=== PATIENT | female | born 1985 | race Two or more races ===

== ENCOUNTER 2023-03-10 14:38 | Inpatient (IN) | payer MEDICAID, OTHER ==
[~2023-03-10] VITALS: Ht 355.6 cm; Wt 62.4 kg
[2023-03-10 15:25] LABS: Eosinophils # (auto) 0.1 10 ^3/uL (0-0.8); Lymphocytes # (auto) 1.9 10 ^3/uL (0.4-5.4); Neutrophils # (auto) 4.8 10 ^3/uL (1.6-8.6); White Blood Cell 7.2 10^3/uL (4.4-10.8)
[2023-03-10 15:28] LABS: Basophils # (auto) 0.1 10 ^3/uL (0-0.2); Basophils % (auto) 1.1 % (0.0-2.0); Hematocrit 39.1 % (36.0-46.0); Lymphocytes % (auto) 26.8 % (10.0-50.0); Mean Corpuscular Hemoglobin 29.4 pg (28.0-32.0); Mean Corpuscular Hgb Conc. 33.4 g/dL (32.0-36.0); Mean Corpuscular Volume 88.1 fL (80.0-100.0); Monocytes # (auto) 0.4 10 ^3/uL (0-1.3); Monocytes % (auto) 5.1 % (0.0-12.0); Red Blood Cells 4.44 10^6/uL (4.0-5.20); Red Cell Distribution Width 13.5 % (11.8-14.3)
[2023-03-10 15:58] LABS: Potassium 4.7 mmol/L (3.5-5.1)
[2023-03-10 16:06] LABS: Albumin 3.5 g/dL (3.4-5.0); BUN/Creatinine Ratio 19.2 (10.0-20.0); Bilirubin, Total 0.3 mg/dL (0.2-1.0); CRP High Sensitivity 0.4 mg/dL (< 0.3); Calcium 8.7 mg/dL (8.5-10.1); Total Protein 7.2 g/dL (6.4-8.2)
[2023-03-10 16:31] LABS: Urine Bacteria NONE SEEN /hpf (None Seen); Urine Blood Negative /uL (Negative); Urine Specific Gravity 1.016 (1.001-1.035); Urine WBC <1 /hpf (0 - 5)
[2023-03-10 16:44] LABS: Amphetamine Screen, Urine NEGATIVE (NEGATIVE); Barbiturate Scree,Urine NEGATIVE (NEGATIVE); Benzodiazephine Screen, Urine NEGATIVE (NEGATIVE); Cannabinoid Screen, Urine NEGATIVE (NEGATIVE); Cocaine Screen, Urine NEGATIVE (NEGATIVE); Phencyclidine Screen, Urine NEGATIVE (NEGATIVE)
[2023-03-10 16:46] LABS: Opiate Scree,Urine NEGATIVE (NEGATIVE)
[2023-03-10] MEDS ORDERED: IOHEXOL 300 MG/ML 100ML BOTTLE IJ ONE (17:36)
[2023-03-10] MEDS ORDERED: LEVO-185 PO (19:43)
[2023-03-10] MEDS ORDERED: NORE0.3510 PO (19:43)
[2023-03-10] MEDS ORDERED: IBUP-1455 PO (19:43)
[2023-03-10] MEDS ORDERED: HYDROcodone-ACET 5/325MG TAB PO PRN (19:45)
[2023-03-10] MEDS ORDERED: ACETAMINOPHEN 325 MG TAB PO PRN (19:45)
[2023-03-10] MEDS ORDERED: PANTOPRAZOLE 40 MG/10 ML VIAL INJ IV ONE (19:45)
[2023-03-10] MEDS ORDERED: IBUPROFEN 800 MG TAB PO PRN (19:45)
[2023-03-10 22:33] LABS: INR 1.02 (0.9-1.15)
[2023-03-11 04:54] LABS: Basophils # (auto) 0 10 ^3/uL (0-0.2); Basophils % (auto) 0.3 % (0.0-2.0); Eosinophils # (auto) 0.1 10 ^3/uL (0-0.8); Eosinophils % (auto) 1.9 % (0.0-7.0); Hemoglobin 12.1 g/dL (12.2-16.2); Lymphocytes # (auto) 2.6 10 ^3/uL (0.4-5.4); Lymphocytes % (auto) 47.6 % (10.0-50.0); Mean Corpuscular Hemoglobin 29.6 pg (28.0-32.0); Mean Corpuscular Hgb Conc. 33.7 g/dL (32.0-36.0); Mean Corpuscular Volume 87.9 fL (80.0-100.0); Monocytes # (auto) 0.4 10 ^3/uL (0-1.3); Monocytes % (auto) 6.6 % (0.0-12.0); Neutrophils # (auto) 2.4 10 ^3/uL (1.6-8.6); Neutrophils % (auto) 43.6 % (37.0-80.0); Nucleated Red Blood Cells % 0.1 %; Red Blood Cells 4.09 10^6/uL (4.0-5.20); Red Cell Distribution Width 13.7 % (11.8-14.3); White Blood Cell 5.5 10^3/uL (4.4-10.8)
[2023-03-11 05:17] LABS: Albumin 3.1 g/dL (3.4-5.0); Calcium 8.1 mg/dL (8.5-10.1); Potassium 4.1 mmol/L (3.5-5.1)
[2023-03-11 05:20] LABS: BUN/Creatinine Ratio 27.4 (10.0-20.0); Bilirubin, Total 0.2 mg/dL (0.2-1.0); Total Protein 6.9 g/dL (6.4-8.2)
[2023-03-11 08:25] VITALS: BP 92/61
[2023-03-11 08:55] VITALS: BP 92/61
[2023-03-11 09:00] VITALS: BP 92/61
[2023-03-11] MEDS ORDERED: ETH ESTRADIOL PO SCH (10:00)
[2023-03-11] MEDS ORDERED: LEVONORGESTREL PO SCH (10:00)
[2023-03-11] MEDS ORDERED: NORETHINDRONE PO SCH (10:00)
[2023-03-11] MEDS ORDERED: PANTOPRAZOLE 40 MG/10 ML VIAL INJ IV SCH (10:00)
[2023-03-11 13:05] VITALS: BP 101/62
[2023-03-11 13:09] VITALS: BP 101/62
[2023-03-14 17:15] LABS: Hepatitis A Total Antibody Positive (Negative)
[2023-03-14 17:16] LABS: Hepatitis B Surface Antibody Negative (Negative)
[2023-03-15 09:17] LABS: Hepatitis C Antibody Positive (Negative)
== END 2023-03-11 14:00 | disposition home or self-care (01) | DRG 761 ==
LOC: ER 14:38 → OVERFLOW 19:42 → WEST WING 03-11 08:18
PROVIDERS: ADMIT Nurse Practitioner Family; ATTEND Internal Medicine Geriatric Medicine
DX: N83.202 Unspecified ovarian cyst, left side (principal); K37 Unspecified appendicitis; R79.82 Elevated C-reactive protein (CRP); Z79.899 Other long term (current) drug therapy; Z98.891 History of uterine scar from previous surgery
CPT/HCPCS: 36415; 74177; 76830; 76856; 80053; 80307; 81001; 81025; 83605; 83690; 84702; 85025; 85610; 86141; 86704; 86706; 86708; 86803; 87340; C9113; G0378